=== PATIENT | female | born 1950 | race Caucasian/White ===

== ENCOUNTER 2017-12-17 07:24 | Emergency (ER) | payer OTHER ==
[2017-12-17 07:43] VITALS: BP 145/81; PULSE 72; TEMP 98.1; BMI 34.7
[2017-12-17] MEDS ORDERED: IBUPROFEN 400 MG TABLET (FP) PO ONE ×2 (07:55→08:10)
--- NOTE | 2017-12-17 07:55 | PDOC ---
History of Present Illness - General Chief Complaint: Injury Stated Complaint: FINGER INJURED Time Seen by Provider: 12/17/17 07:51 History Source: Patient Exam Limitations: No Limitations - History of Present Illness Initial Comments: 12/17/17 07:57 Patient is a 67-year-old female with past medical history of hypertension, who presents to the emergency department today with left hand pain. Patient states that she was working on [address] when a patient slammed the door on her left first finger. Patient is right-hand dominant. She states that she feels like the finger is throbbing and it hurts to bend it. Denies fevers, chills, numbness and tingling to the extremity, weakness. Past History - Travel Traveled outside of the country in the last 30 days: No Close contact w/someone who was outside of country & ill: No - Past Medical History Allergies/Adverse Reactions: Allergies Allergy/AdvReac Type Severity Reaction Status Date / Time shellfish derived Allergy Intermediate Verified 12/17/17 07:32 Home Medications: Ambulatory Orders Amlodipine Besylate [Norvasc -] 25 mg PO DAILY 02/16/13 Lisinopril [Prinivil] 20 mg PO DAILY 02/16/13 Hydrochlorothiazide [Hctz -] 5 mg PO DAILY 03/14/15 Ibuprofen 800 mg PO TID #30 tablet 12/17/17 COPD: No HTN: Yes - Family Disease History Family Disease History: Heart Disease: Father (htn) - Suicide/Smoking/Psychosocial Hx Smoking Status: No Smoking History: Never smoked Number of Cigarettes Smoked Daily: 0 Hx Alcohol Use: No Drug/Substance Use Hx: No Substance Use Type: None Hx Substance Use Treatment: No Review of Systems - Review of Systems Able to Perform ROS?: Yes Comments:: 12/17/17 07:57 CONSTITUTIONAL: Absent: fever, chills, diaphoresis, generalized weakness, malaise, loss of appetite MUSCULOSKELETAL: Present: L first finger pain. Absent: myalgia, arthralgia, joint swelling SKIN: Present: L first finger nail bruising. Absent: rash, itching, pallor HEMATOLOGIC/IMMUNOLOGIC: Absent: easy bleeding, easy bruising, lymphadenopathy, frequent infections ENDOCRINE: Absent: unexplained weight gain, unexplained weight loss, heat intolerance, cold intolerance NEUROLOGIC: Absent: headache, focal weakness or paresthesias, dizziness, unsteady gait, seizure, mental status changes, bladder or bowel incontinence PSYCHIATRIC: Absent: anxiety, depression, suicidal or homicidal ideation, hallucinations. Is the patient limited Turkmen proficient: No *Physical Exam - Vital Signs Last Vital Signs Temp Pulse Resp BP Pulse Ox 98.1 F 72 18 145/81 99 12/17/17 07:27 12/17/17 07:27 12/17/17 07:27 12/17/17 07:27 12/17/17 07:27 - Physical Exam Comments: 12/17/17 08:01 GENERAL: The patient is awake, alert, and fully oriented, in no acute distress. HEAD: Normal with no signs of trauma. EYES: Pupils equal, round and reactive to light, extraocular movements intact, sclera anicteric, conjunctiva clear. EXTREMITIES: TTP of the PIP of the L first hand. Unable to flex or extend L first finger d/t pain. Normal range of motion at all other joints, no edema. Radial pulses 2+ and regular. NEUROLOGICAL: Normal speech, normal gait. PSYCH: Normal mood, normal affect. SKIN: distal Subungal hematoma to the L first finger less than 1/3 the length of the nail bed. Warm, Dry, normal turgor, no rashes or lesions noted. Medical Decision Making - Medical Decision Making 12/17/17 08:42 Patient is a 67-year-old female with past medical history of hypertension who presents with pain to the left hand, first finger after having it slammed in a door. X-ray shows no fracture at this time. Pain most likely due to swelling. We 'll discharge home with symptomatic treatment and ortho follow-up. Return precautions given. Patient understands all discharge instructions and all questions were answered. *DC/Admit/Observation/Transfer Diagnosis at time of Disposition: Pain of left thumb Subungual hematoma of digit of hand Qualifiers: Encounter type: initial encounter Qualified Code(s): S60.10XA - Contusion of unspecified finger with damage to nail, initial encounter - Discharge Dispostion Disposition: HOME Condition at time of disposition: Good Decision to Admit order: No - Referrals Referrals: Dejon Esquivel MD [Primary Care Provider] - Isidoro Tavarez MD [Staff Physician] - - Patient Instructions Additional Instructions: Your x-ray is negative for fracture today. Please apply ice to the area for 20 minute intervals for the next 24 hours. You may take Motrin 800 mg every 8 hours as needed for pain. Please follow up with orthopedics in 2-3 days if her symptoms are not improving. A referral has been provided for you. Return to the emergency department if you have worsening pain, numbness and tingling to the hand, or if you have any changes in your symptoms. - Post Discharge Activity Forms/Work/School Notes: Back to Work
== END 2017-12-17 08:54 | disposition home or self-care (01) ==
LOC: JER 07:24
DX: S60.112A Contusion of left thumb with damage to nail, initial encounter (principal); W23.0XXA Caught, crushed, jammed, or pinched between moving objects, initial encounter; Y93.89 Activity, other specified; Y92.238 Other place in hospital as the place of occurrence of the external cause; Y99.0 Civilian activity done for income or pay
CPT/HCPCS: 73130-TC-LR-FY; 99281-25